=== PATIENT | male | born 1985 | race Hispanic/Latino ===

== ENCOUNTER 2021-01-01 07:32 | Emergency (ER) | payer BC, SELFPAY ==
[2021-01-01] MEDS ORDERED: NA CHLORIDE 0.9% 1,000 ML ONE ×2 (08:21→09:34)
[2021-01-01] MEDS ORDERED: MORPHINE 4 MG/ML SYR ONE (08:21)
[2021-01-01] MEDS ORDERED: ONDANSETRON 4 MG/2 ML VIAL ONE (08:21)
[2021-01-01 08:37] LABS: Basophils % 0.3 % (0-1.3); Lymphocytes % 18.4 % (15.3-44.8); MPV 7.2 fL (7.6-11.3); RBC Red Blood Cell Count 4.83 M/uL (4.33-5.43)
[2021-01-01 08:46] LABS: Albumin 3.9 g/dL (3.4-5.0); Bilirubin Direct 0.1 mg/dL (0-0.2); Bilirubin Total 0.3 mg/dL (0.2-1.0); Potassium 4.5 mmol/L (3.5-5.1); Protein, Total 8.3 g/dL (6.4-8.2)
--- NOTE | 2021-01-01 09:09 | RAD REPORT ---
EXAM DESCRIPTION: CT - Abdomen Pelvis W Contrast - 01/01/2021 8:53 am CLINICAL HISTORY: Abdominal pain COMPARISON: none. TECHNIQUE: Computed axial tomography of the abdomen pelvis was obtained. 100 cc Isovue-300 was admin istered intravenously. Oral contrast was not requested which limits evaluation of bowel. All CT scans are performed using dose optimization technique as appropriate and may include automated exposure control or mA/KV adjustment according to patient size. FINDINGS: Fatty liver Spleen pancreas, adrenals and left kidney are unremarkable Delay of concentration contrast within the right kidney. Small cysts. Mild right hydronephrosis. A 2 millimeter calculus is present within the mid right ureter. There is no evidence of diverticulitis. Normal appendix Ventral hernia to the right of midline within the lower abdomen couple centimeters above the umbilicu s contains. Stranding is present within the fat. The neck measures 5 millimeters. The herniated sac m easures 28 millimeters Small to moderate umbilical hernia containing fat. The neck measures 11 millimeters. Small inguinal h ernias contain fat IMPRESSION: A 2 millimeter calculus mid right ureter resulting in mild right hydronephrosis Small to moderate right ventral hernia. Stranding within the fat may indicate inflammation or strangu lation.
[2021-01-01] MEDS ORDERED: HYDROMORPHONE HCL 1 MG/ML INJ ONE (09:26)
[2021-01-01] MEDS ORDERED: TAMSULOSIN 0.4 MG SR CAP ONE (09:34)
--- NOTE | 2021-01-01 10:42 | EDPHYS ---
Physician Documentation [facility] Name: Fidencio Vega Jr Age: 35 yrs Sex: Male : 1985 Arrival Date: 01/01/2021 Time: 07:33 Bed 8 Private MD: None, None ED Physician Monica Santiago HPI: 01/01 08:39 This 35 yrs old Male presents to ER via Wheelchair with complaints of ma2 Abdominal Pain. 08:39 The patient presents with abdominal pain. Onset: The symptoms/episode began/occurred ma2 gradually, 1 day(s) ago. Associated signs and symptoms: Pertinent negatives: blood in stools, constipation. Severity of pain: At its worst the pain was moderate in the emergency department the pain is unchanged. The patient has not experienced similar symptoms in the past. Historical: - Allergies: 08:13 No Known Allergies; hb - Home Meds: 08:13 None [Active]; hb - PMHx: 08:13 None; hb - PSHx: 08:17 stomach surgery when an infant; sv - Immunization history:: Adult Immunizations up to date. - Social history:: Smoking status: Patient denies any tobacco usage or history of. Patient/guardian denies using alcohol, street drugs, The patient lives with family. - Family history:: not pertinent. ROS: 08:39 Constitutional: Negative for fever, chills, and weight loss. ma2 08:39 All other systems are negative. Exam: 08:39 Constitutional: This is a well developed, well nourished patient who is awake, alert, ma2 and in no acute distress. Chest/axilla: Normal chest wall appearance and motion. Nontender with no deformity. No lesions are appreciated. Cardiovascular: Regular rate and rhythm with a normal S1 and S2. No gallops, murmurs, or rubs. Normal PMI, no JVD. No pulse deficits. Respiratory: Lungs have equal breath sounds bilaterally, clear to auscultation and percussion. No rales, rhonchi or wheezes noted. No increased work of breathing, no retractions or nasal flaring. Abdomen/GI: Soft,mildly tender on RLQ , with normal bowel sounds. No distension or tympany. No guarding or rebound. No evidence of tenderness other than RLQ Back: No spinal tenderness. No costovertebral tenderness. Full range of motion. Skin: Warm, dry with normal turgor. Normal color with no rashes, no lesions, and no evidence of cellulitis. MS/ Extremity: Pulses equal, no cyanosis. Neurovascular intact. Full, normal range of motion. Neuro: Awake and alert, GCS 15, oriented to person, place, time, and situation. Cranial nerves II-XII grossly intact. Motor strength 5/5 in all extremities. Sensory grossly intact. Cerebellar exam normal. Normal gait. Vital Signs: 08:05 BP 123 / 82; Pulse 78; Resp 24; Temp 97; Pulse Ox 95% ; Pain 10/10; sv 09:10 BP 120 / 78; Pulse 77; Resp 16; Pulse Ox 95% on R/A; sv 10:00 BP 117 / 76; Pulse 71; Resp 16; Pulse Ox 94% ; sv 10:51 BP 118 / 80; Pulse 72; Resp 18; Pulse Ox 95% ; sv MDM: 08:01 Patient medically screened. [facility] 08:39 Differential diagnosis: appendicitis, gastritis, gastroesophageal reflux disease, ma2 pancreatitis, Pyelonephritis. 10:41 Data reviewed: vital signs, nurses notes. Counseling: I had a detailed discussion with [facility] the patient and/or guardian regarding: the historical points, exam findings, and any diagnostic results supporting the discharge/admit diagnosis, the presence of at least one elevated blood pressure reading (>120/80) during this emergency department visit, the need for outpatient follow up. Response to treatment: the patient's symptoms have markedly improved after treatment. 01/01 08:02 Order name: Basic Metabolic Panel [facility] 01/01 08:02 Order name: CBC with Diff; Complete Time: 09:12 [facility] 01/01 08:02 Order name: Hepatic Function; Complete Time: 09:12 [facility] 01/01 08:02 Order name: Lipase; Complete Time: 09:12 [facility] 01/01 08:02 Order name: Basic Metabolic Panel; Complete Time: 09:12 [facility] 01/01 09:11 Order name: CREATININE WHOLE BLOOD; Complete Time: 09:15 [facility] 01/01 08:02 Order name: CT Abd/Pelvis - IV Contrast Only; Complete Time: 09:12 [facility] 01/01 08:02 Order name: IV Saline Lock; Complete Time: 08:15 [facility] 01/01 08:02 Order name: Labs collected and sent; Complete Time: 08:15 ma2 01/01 08:04 Order name: NPO; Complete Time: 08:14 ma2 Administered Medications: 08:10 Drug: NS 0.9% 1000 ml Route: IV; Rate: 1 bolus; Site: right antecubital; sv 09:21 Follow up: Response: No adverse reaction; IV Status: Completed infusion; IV Intake: sv 1000ml 08:10 Drug: Zofran (Ondansetron) 4 mg Route: IVP; Site: right antecubital; sv 09:00 Follow up: Response: No adverse reaction sv 08:12 Drug: morphine 4 mg {Note: rass3.} Route: IVP; Site: right antecubital; sv 09:00 Follow up: Response: No adverse reaction; No change in condition; Pain is unchanged, sv physician notified; RASS: Very agitated (+3) 09:16 Drug: Dilaudid 1 mg {Note: rass3.} Route: IVP; Site: right antecubital; sv 09:45 Follow up: Response: No adverse reaction; Marked relief of symptoms; Pain is decreased; sv RASS: Light sedation (-2) 09:20 Drug: NS 0.9% 1000 ml Route: IV; Rate: 1 bolus; Site: right antecubital; sv 10:00 Follow up: Response: No adverse reaction; IV Status: Completed infusion; IV Intake: sv 1000ml 09:21 Drug: Flomax 0.4 mg Route: PO; sv 09:29 Follow up: Response: No adverse reaction sv 10:59 Drug: Dilaudid 0.5 mg {Note: rass2.} Route: IVP; Site: right antecubital; sv 11:13 Follow up: Response: No adverse reaction; Medication administered at discharge. sv Disposition: 01/01/21 10:41 Discharged to Home. Impression: Urinary calculus, unspecified - Right Ureter . - Condition is Stable. - Discharge Instructions: Kidney Stones. - Prescriptions for Zofran 4 mg Oral Tablet - take 1 tablet by ORAL route every 12 hours As needed; 20 tablet. Flomax 0.4 mg Oral Capsule, Sust. Release 24 hr - take 1 capsule by ORAL route once daily 1/2 hour following the same meal each day; 30 capsule. Diclofenac Sodium 75 mg Oral Tablet Sustained Release - take 1 tablet by ORAL route 2 times per day; 30 tablet. - Medication Reconciliation Form, Thank You Letter, Antibiotic Education, Prescription Opioid Use, Work release form form. - Follow up: Michael Wood MD; When: Tomorrow; Reason: Continuance of care. Signatures: Dispatcher [employer] Ansley Gardner RN RN Loli Ponce RN RN Monica Santiago MD MD ma2 Corrections: (The following items were deleted from the chart) 08:17 08:13 PSHx: None; hb sv 11:14 10:41 01/01/2021 10:41 Discharged to Home. Impression: Urinary calculus, unspecified - sv Right Ureter . Condition is Stable. Prescriptions for Zofran 4 mg Oral Tablet - take 1 tablet by ORAL route every 12 hours As needed; 20 tablet, Flomax 0.4 mg Oral Capsule, Sust. Release 24 hr - take 1 capsule by ORAL route once daily 1/2 hour following the same meal each day; 30 capsule, Diclofenac Sodium 75 mg Oral Tablet Sustained Release - take 1 tablet by ORAL route 2 times per day; 30 tablet. and Forms are Medication Reconciliation Form, Thank You Letter, Antibiotic Education, Prescription Opioid Use. Follow up: Michael Wood; When: Tomorrow; Reason: Continuance of care. ma2
--- NOTE | 2021-01-01 10:42 | ER ---
Nurse's Notes [facility] Name: Fidencio Vega Jr Age: 35 yrs Sex: Male : 1985 Arrival Date: 01/01/2021 Time: 07:33 Bed 8 Private MD: None, None Diagnosis: Urinary calculus, unspecified-Right Ureter Presentation: 01/01 08:05 Chief complaint: Patient states: RLQ pain since yesterday but got worse since 0300 this sv morning. Coronavirus screen: Client denies travel out of the [place] in the last 14 days. At this time, the client does not indicate any symptoms associated with coronavirus-19. Ebola Screen: No symptoms or risks identified at this time. Initial Sepsis Screen: Does the patient meet any 2 criteria? RR > 20 per min. No. Patient's initial sepsis screen is negative. Does the patient have a suspected source of infection? No. Patient's initial sepsis screen is negative. Risk Assessment: Do you want to hurt yourself or someone else? Patient reports no desire to harm self or others. Onset of symptoms was December 31, 2020. 08:05 Method Of Arrival: Wheelchair sv 08:05 Acuity: MIGDALIA 2 sv Triage Assessment: 08:05 General: Appears uncomfortable, well groomed, well developed, Behavior is cooperative, sv appropriate for age, restless. Pain: Complains of pain in right lower quadrant Pain currently is 10 out of 10 on a pain scale. Quality of pain is described as stabbing, Pain began since yesterday but worse since 0300 Is continuous. Neuro: Level of Consciousness is awake, alert, obeys commands, Oriented to person, place, time, situation, Moves all extremities. Full function. Cardiovascular: Patient's skin is warm and dry. Respiratory: Airway is patent Respiratory effort is even, unlabored, Respiratory pattern is symmetrical, tachypnea. GI: Abdomen is round Abdomen is tender to palpation in right lower quadrant. Derm: Skin is intact, Skin is pink, warm \T\ dry. Musculoskeletal: Range of motion: intact in all extremities. Historical: - Allergies: 08:13 No Known Allergies; hb - Home Meds: 08:13 None [Active]; hb - PMHx: 08:13 None; hb - PSHx: 08:17 stomach surgery when an infant; sv - Immunization history:: Adult Immunizations up to date. - Social history:: Smoking status: Patient denies any tobacco usage or history of. Patient/guardian denies using alcohol, street drugs, The patient lives with family. - Family history:: not pertinent. Screenin:14 Abuse screen: Denies threats or abuse. Denies injuries from another. Nutritional hb screening: No deficits noted. Tuberculosis screening: No symptoms or risk factors identified. Fall Risk None identified. Assessment: 09:16 Reassessment: Patient appears in no apparent distress at this time. No changes from sv previously documented assessment. Patient and/or family updated on plan of care and expected duration. Pain level reassessed. Patient is alert, oriented x 3, equal unlabored respirations, skin warm/dry/pink. 10:58 Reassessment: Patient appears in no apparent distress at this time. Patient and/or sv family updated on plan of care and expected duration. Pain level reassessed. Patient is alert, oriented x 3, equal unlabored respirations, skin warm/dry/pink. Went to go discharge pt and is c/o pain. Informed Dr Santiago, medication order received. See JAN. Vital Signs: 08:05 BP 123 / 82; Pulse 78; Resp 24; Temp 97; Pulse Ox 95% ; Pain 10/10; sv 09:10 BP 120 / 78; Pulse 77; Resp 16; Pulse Ox 95% on R/A; sv 10:00 BP 117 / 76; Pulse 71; Resp 16; Pulse Ox 94% ; sv 10:51 BP 118 / 80; Pulse 72; Resp 18; Pulse Ox 95% ; sv ED Course: 07:33 Patient arrived in ED. mr 07:33 None, None is Private Physician. mr 08:00 Monica Santiago MD is Attending Physician. ma2 08:03 Ansley Hall, RN is Primary Nurse. sv 08:08 Inserted saline lock: 18 gauge in right antecubital area, using aseptic technique. hb ,using aseptic technique. by Ansley [place] Blood collected. 08:13 Arm band placed on. hb 08:14 Patient has correct armband on for positive identification. Bed in low position. Call hb light in reach. Side rails up X 1. 08:15 Basic Metabolic Panel Sent. sv 08:16 Triage completed. sv 08:54 CT Abd/Pelvis - IV Contrast Only In Process Unspecified. EDMS 08:[address] moved back from [address]. sv 10:41 Michael Wood MD is Referral Physician. ma2 11:14 No provider procedures requiring assistance completed. IV discontinued, intact, sv bleeding controlled, No redness/swelling at site. Pressure dressing applied. Administered Medications: 08:10 Drug: NS 0.9% 1000 ml Route: IV; Rate: 1 bolus; Site: right antecubital; sv 09:21 Follow up: Response: No adverse reaction; IV Status: Completed infusion; IV Intake: sv 1000ml 08:10 Drug: Zofran (Ondansetron) 4 mg Route: IVP; Site: right antecubital; sv 09:00 Follow up: Response: No adverse reaction sv 08:12 Drug: morphine 4 mg {Note: rass3.} Route: IVP; Site: right antecubital; sv 09:00 Follow up: Response: No adverse reaction; No change in condition; Pain is unchanged, sv physician notified; RASS: Very agitated (+3) 09:16 Drug: Dilaudid 1 mg {Note: rass3.} Route: IVP; Site: right antecubital; sv 09:45 Follow up: Response: No adverse reaction; Marked relief of symptoms; Pain is decreased; sv RASS: Light sedation (-2) 09:20 Drug: NS 0.9% 1000 ml Route: IV; Rate: 1 bolus; Site: right antecubital; sv 10:00 Follow up: Response: No adverse reaction; IV Status: Completed infusion; IV Intake: sv 1000ml 09:21 Drug: Flomax 0.4 mg Route: PO; sv 09:29 Follow up: Response: No adverse reaction sv 10:59 Drug: Dilaudid 0.5 mg {Note: rass2.} Route: IVP; Site: right antecubital; sv 11:13 Follow up: Response: No adverse reaction; Medication administered at discharge. sv Intake: 09:21 IV: 1000ml; Total: 1000ml. sv 10:00 IV: 1000ml; Total: 2000ml. sv Outcome: 10:41 Discharge ordered by . ma2 11:14 Discharged to home via wheelchair, with family. sv 11:14 Condition: stable 11:14 Discharge instructions given to patient, Instructed on discharge instructions, follow up and referral plans. medication usage, increase fluid intake Demonstrated understanding of instructions, follow-up care, medications, Prescriptions given X 3. 11:14 Patient left the ED. Signatures: Dispatcher [employer] Ansley Gardner RN RN sv Rivera, Mary mr Baxter, Heather, RN RN Monica Santiago MD MD ma2 Corrections: (The following items were deleted from the chart) 08:17 08:13 PSHx: None; [facility]
[2021-01-01] MEDS ORDERED: HYDROMORPHONE HCL 0.5 MG/0.5 ML INJ ONE (11:11)
[2021-01-01 11:18] VITALS: TEMP 97
[2021-01-01 11:22] VITALS: BP 118/80; O2SAT 95
== END 2021-01-01 11:14 | disposition home or self-care (01) ==
LOC: ER 07:32
DX: N20.1 Calculus of ureter (principal)
CPT/HCPCS: 36415; 74177; 80048; 80076; 82565; 83690; 85025; 96361; 96374; 96375; 99284; J1170; J2405; J7030; Q9967